=== PATIENT | male | born 2000 | race Caucasian/White ===

== ENCOUNTER 2020-03-30 15:55 | Outpatient (REF) | payer OTHER, SELFPAY | END 2020-03-30 15:56 | disposition home or self-care (01) | LOC: HO.LAB 15:55 | PROVIDERS: Visit Provider Internal Medicine | DX: Z20.828 Contact with and (suspected) exposure to other viral communicable diseases (principal) | CPT/HCPCS: C9803; U0003 ==

== ENCOUNTER 2020-05-04 16:47 | Outpatient (REF) | payer OTHER, SELFPAY | END 2020-05-04 16:48 | disposition home or self-care (01) | LOC: HO.LAB 16:47 | PROVIDERS: Visit Provider Internal Medicine | DX: Z20.822 Contact with and (suspected) exposure to COVID-19 (principal) | CPT/HCPCS: 36415; C9803; U0003 ==

== ENCOUNTER 2020-05-16 16:16 | Outpatient (REF) | payer OTHER, SELFPAY | END 2020-05-16 16:17 | disposition home or self-care (01) | LOC: HO.LAB 16:16 | PROVIDERS: Visit Provider Internal Medicine | DX: Z20.822 Contact with and (suspected) exposure to COVID-19 (principal) | CPT/HCPCS: 36415; C9803; U0003 ==

== ENCOUNTER 2020-07-11 15:28 | Outpatient (REF) | payer OTHER, SELFPAY | END 2020-07-11 15:29 | disposition home or self-care (01) | LOC: HO.LAB 15:28 | PROVIDERS: Visit Provider Internal Medicine | DX: Z20.822 Contact with and (suspected) exposure to COVID-19 (principal) | CPT/HCPCS: 36415; C9803; U0003; U0005 ==

== ENCOUNTER 2020-07-14 14:41 | Outpatient (REF) | payer OTHER, SELFPAY | END 2020-07-14 14:42 | disposition home or self-care (01) | LOC: HO.LAB 14:41 | PROVIDERS: Visit Provider Internal Medicine | DX: Z20.822 Contact with and (suspected) exposure to COVID-19 (principal) | CPT/HCPCS: 36415; C9803; U0003; U0005 ==

== ENCOUNTER 2020-08-17 14:08 | Outpatient (REF) | payer OTHER, SELFPAY ==
[2020-08-17 14:27] LABS: COVID-19 Test Negative (Negative)
== END 2020-08-17 14:09 | disposition home or self-care (01) ==
LOC: HO.LAB 14:08
PROVIDERS: Visit Provider Internal Medicine
DX: Z20.822 Contact with and (suspected) exposure to COVID-19 (principal)
CPT/HCPCS: 36415; 87635; C9803

== ENCOUNTER 2021-04-28 11:33 | Outpatient (REF) | payer OTHER, SELFPAY | END 2021-04-28 11:34 | disposition home or self-care (01) | LOC: HO.LAB 11:33 | PROVIDERS: Visit Provider Pediatrics | DX: Z20.822 Contact with and (suspected) exposure to COVID-19 (principal) | CPT/HCPCS: U0003; U0005 ==

== ENCOUNTER 2021-09-01 19:50 | Emergency (ER) | payer OTHER, SELFPAY ==
--- NOTE | 2021-09-01 21:51 | PC.NURSE ---
Called pt for triage, but no response. LWBS.
== END 2021-09-01 22:16 | disposition left against medical advice (07) ==
LOC: HO.ED 22:13
PROVIDERS: Emergency Provider Emergency Medicine; PCP Physician Assistant
DX: M25.511 Pain in right shoulder (principal)

== ENCOUNTER 2021-09-02 01:23 | Emergency (ER) | payer OTHER, SELFPAY ==
[2021-09-02 01:38] VITALS: BP 137/70; PULSE 75; RESP 18; TEMP 37; BMI 22.4
[2021-09-02 03:32] VITALS: BP 123/70; PULSE 63; RESP 12; O2SAT 98
[2021-09-02 06:10] VITALS: BP 136/76; PULSE 68; RESP 14; O2SAT 98
== END 2021-09-02 06:32 | disposition left against medical advice (07) ==
PROVIDERS: Emergency Provider Emergency Medicine
DX: M25.511 Pain in right shoulder (principal)

== ENCOUNTER 2021-11-13 14:45 | Emergency (ER) | payer OTHER, SELFPAY ==
[2021-11-13 15:04] VITALS: BP 123/73; PULSE 85; RESP 18; TEMP 36.1; O2SAT 97; BMI 20.9
--- NOTE | 2021-11-13 17:47 | ED_ITS ---
HPI - Male Genitourinary General Chief complaint: Urogenital-Male Stated complaint: STD testing Time Seen by Provider: 11/13/21 17:32 Source: patient Mode of arrival: ambulatory Limitations: no limitations History of Present Illness HPI Narrative: 21-year-old male who is healthy here with concern for STD. Patient tells me his sexual partner contacted him and informed him that they were positive for chlamydia. Patient is asymptomatic Related Data Previous Rx's Medication Instructions Recorded doxycycline monohydrate 100 mg 100 mg PO BID #14 tabs 11/13/21 tablet Allergies Allergy/AdvReac Type Severity Reaction Status Date / Time No Known Allergies Allergy Verified 09/04/21 07:24 Review of Systems Review of Systems: Yes all other systems are reviewed and are negative Constitutional: Constitutional: Reports no additional constitutional complaints, Denies body ache(s), Denies chills, Denies fever(s), Denies headache(s) and Denies weakness Eyes: Eyes: Reports no additional eye complaints and Denies change in vision ENT: Reports system reviewed and no additional complaints, except as documented, Denies dizziness, Denies headache(s), Denies nasal congestion, Denies nasal discharge and Denies neck pain Cardiovascular: Cardiovascular: Reports no additional cardiovascular complaints, Denies chest pain, Denies leg edema and Denies dyspnea Respiratory: Respiratory: Reports no additional respiratory complaints, Denies cough and Denies dyspnea Gastrointestinal: Gastrointestinal: Reports no additional gastrointestinal com plaints, Denies abdominal pain, Denies diarrhea, Denies nausea and Denies vomiting Genitourinary: Genitourinary: Denies urinary incontinence Musculoskeletal: Musculoskeletal: Reports no additional musculoskeletal complaints, Denies back pain, Denies arthralgias, Denies joint swelling, Denies neck pain, Denies numbness and Denies tingling Integumentary/Breasts: Skin/Breast: Reports system reviewed and no additional complaints, except as docu and Denies rash Neurologic: Reports system reviewed and no additional complaints, except as documented, Denies Abnormal speech present, Denies dizziness, Denies he adache(s), Denies numbness, Denies tingling and Denies weakness PMFSH Past Medical History Attestation statement: The following information was validated with the patient. Source: old records reviewed and nursing notes reviewed Medical History COVID-19 Social History Social History Advance Directives: No Advance Directives Information Provided: No Physical Exam Vital Signs: Vital Signs: Last Vital Signs Temp 96.9 F 11/13/21 15:04 Pulse 85 11/13/21 15:04 Resp 18 11/13/21 15:04 BP 123/73 11/13/21 15:04 Pulse Ox 97 11/13/21 15:04 O2 Del Method 11/13/21 15:04 BMI result Body Mass Index 20.9 Const: General: cooperative, healthy appearing, comfortable and no acute di stress Orientation/consciousness: patient oriented x3 Limitations: no limitations HEENT: Head: Yes normal to inspection Ears: hearing grossly normal bilaterally General nose exam: Normal external nose present Face and sinus : Yes normal facial exam Mouth: Normal oral and palatal mucosa present Throat: Yes posterior oropharynx normal Eyes: General: appearance normal, both eyes and all related structures Pupils: Equal, round and reactive pupils present Neck: Neck: Yes normal visual inspection Chest: Chest palpation & inspection: normal inspection of the chest Resp: Effort & Inspection: normal respiratory effort Auscultation: clear to auscultation bilaterally Cardio: Rate: regular rate Rhythm: regular rhythm Peripheral pulses: Peripheral pulses 2+ throughout GI: Inspection: Yes normal to inspection Palpation (GI): Soft to palpation and nontender Auscultation: normal bowel sounds Back/Spine/Pelvis: Thoracic/Lumbar Spine: thoracic and lumbar spine normal to inspection Skin: General skin exam: no rashes or lesions noted Neuro: General: patient oriented x3, no focal motor deficits and normal sensation to monofilament Cranial nerves: Yes Equal, round and reactive pupils present Cognition (Neuro): normal cognition Speech: No Abnormal speech present Gait exam (Neuro): Normal gait present Motor exam (neuro): 5/5 motor strength present throughout Extrem: General: Yes normal to inspection Course Course Course Narrative: patient treated prophylactically with ceftriaxone 500 mg IM. Patient will be sent home on doxycycline. Reviewed worrisome signs and symptoms of when to return to the emergency department. Comfortable discharge home. MDM - Male Genitourinary MDM Narrative Medical decision making narrative: 21-year-old male here with concern for STD exposure to chlamydia. Patient seeking STD testing. He is asymptomatic Medical Records Attestation: I reviewed the patient's medical records. Lab Data Attestation: I reviewed the patient's lab results. Discharge Plan Discharge Clinical Impression: Concern about STD in male without diagnosis Patient Disposition: Home, Self-Care Instructions: Sexually Transmitted Diseases (ED) Additional Instructions: the test results take a few days to come back. We will call you if they are positive. Prescriptions: New doxycycline monohydrate 100 mg tablet 100 mg PO BID Qty: 14 0RF Referrals: Patti Delatorre PA-C [Primary Care Provider] - 1 week ( As needed)
[2021-11-13] MEDS: cefTRIAXone sodium 500 MG, Lidocaine HCl 1 % MPF 1 ML IM (17:58)
[2021-11-14 07:02] LABS: CT PCR DETECTED (Not Detect.); NG PCR NOT DETECTED (Not Detect.)
== END 2021-11-13 18:05 | disposition home or self-care (01) ==
PROVIDERS: Emergency Provider Emergency Medicine; PCP Physician Assistant
DX: Z20.2 Contact with and (suspected) exposure to infections with a predominantly sexual mode of transmission (principal); Z79.899 Other long term (current) drug therapy
CPT/HCPCS: 87491; 87591; 96372; 99282; 99284; J0696

== ENCOUNTER 2022-06-01 11:45 | Outpatient (REF) | payer OTHER, SELFPAY ==
[2022-06-01 12:19] LABS: COVID-19 Test Negative (Negative); IDNOW Serial# 16C4AD1C
== END 2022-06-01 11:46 | disposition home or self-care (01) ==
LOC: HO.LAB 11:45
PROVIDERS: Visit Provider Internal Medicine
DX: Z20.822 Contact with and (suspected) exposure to COVID-19 (principal)
CPT/HCPCS: 87635; C9803

== ENCOUNTER 2024-05-09 11:07 | Emergency (ER) | payer SELFPAY ==
[2024-05-09 11:17] VITALS: BP 113/77; PULSE 102; RESP 19; TEMP 37.2; O2SAT 99; BMI 20.4
--- NOTE | 2024-05-09 11:18 | ED.GENADULT ---
HPI - General Adult General Chief complaint: Nausea/Vomiting/Diarrhea Stated complaint: vomiting diarrhea Time Seen by Provider: 05/09/24 12:16 Source: patient Mode of arrival: ambulatory Limitations: no limitations History of Present Illness ED Provider: Terra Palmer NP HPI narrative: Patient is a 23-year-old male who presents emergency department for evaluation he endorses nausea, 3 or 4 episodes of bilious nonbloody emesis and 3 episodes of watery diarrhea with onset this morning. He does admit that his significant other was ill with a gastrointestinal illness 2 days ago that presented similarly. Patient denies going out to eat or eating any foods that are atypical for him over the past few days. He denies associated fevers, chills, headache, dizziness, lightheadedness, neck pain, sore throat, cough, chest pain, shortness of breath, difficulty breathing, abdominal pain, back pain, genitourinary symptoms. Related Data Previous Rx's ?Medication ?Instructions ?Recorded doxycycline monohydrate 100 mg 100 mg PO BID #14 tabs 11/13/21 tablet ondansetron 4 mg disintegrating 4 mg PO Q8H PRN nausea and 05/09/24 tablet vomiting #10 tabs Allergies Allergy/AdvReac Type Severity Reaction Status Date / Time No Known Allergies Allergy Verified 05/09/24 11:18 Review of Systems Review of Systems: Yes all other systems are reviewed and are negative PMFSH Past Medical History Attestation statement: The following information was validated with the patient. Source: old records reviewed Medical History COVID-19 Social History Social History Advance Directives: No Advance Directives Information Provided: No Do you have a plan to hurt others: No Plan Physical Exam ED Vital Signs: Vital Signs - 24 hr 05/09/24 11:17 Temperature 99 F Pulse Rate 102 H Respiratory Rate 19 Blood Pressure 113/77 Pulse Oximetry 99 Oxygen Delivery Method Room Air BMI result Body Mass Index 20.4 Appearance: Alert.?Oriented to person, place and time. No acute distress.?Normal affect. Eyes: Pupils equal, round and reactive to light.? ENT: Pharynx normal.?? Neck: Normal inspection.? Neck supple.?? CVS: Heart sounds normal. Normal heart rate and rhythm.? Pulses normal.?? Respiratory: No respiratory distress.? Lung sounds clear to auscultation bilaterally?? Abdomen: Soft and non-tender. Normoactive bowel sounds. No CVAT? Skin: Skin warm and dry.? Normal skin color.? Extremities: No lower extremity edema.? Neuro: Moves all extremities spontaneously. Sensation intact bilaterally. Ambulates with normal steady gait. Course Course Course Narrative: This is a Rapid Medical Examination (RME) performed by Yecenia Lanier PA-C in triage. Full HPI, ROS, assessment and treatment plan per primary provider in the Main ED. 23 yo male here for eval of N/V/D since this morning. no abd pain. no blood in stool or vomit. no sick contacts. Plan: basic labs, viral swabs Medications Administered Discontinued Medications Generic Name Dose Route Start Last Admin Trade Name Freq PRN Reason Stop Dose Admin Ondansetron HCl 4 mg 05/09/24 12:22 05/09/24 12:55 Ondansetron Odt 4 Mg Tab.Rapdis TRANSLINGU 05/09/24 12:23 4 mg ONCE ONE Administration Medical Decision Making Medical Decision Making MDM Narrative: Patient is a 23-year-old male presents emergency department for evaluation of nausea vomiting and diarrhea with onset this morning in the setting of his significant other being ill over the past 2 days with similar symptoms. I suspect that this is most likely a viral gastrointestinal illness. Abdominal examination is benign, overall without signs of systemic toxicity found to be afebrile no significant tachycardia, no hypotension. Examination not consistent with acute abdomen, no peritoneal signs; no tenderness upon light palpation, no rebound tenderness, no guarding, no percussive tenderness. Serum labs were obtained prior to my assumption of care CBC revealing a mild leukocytosis of 13.1, no anemia or thrombocytopenia. No significant electrolyte derangement. No DANIELA. Mildly elevated AST/ALT 99/82 with benign abdominal examination, lower suspicion for acute hepatobiliary etiology and lipase is within normal range. COVID-19/influenza/RSV testing negative. No history of acid reflux, no tenderness over the epigastrium or left upper quadrant to suggest gastritis, no hematemesis to suggest PUD. Denies excessive alcohol consumption or history of diabetes to suggest acute pancreatitis. Will plan for sublingual Zofran and p.o. trial, discussed importance of clear liquids over the next 24-48 hours followed by a bland diet. Tolerated p.o. trial, amenable to discharge home with conservative treatment. Discussed strict return precautions. Differential Diagnosis Differential Diagnoses: The differential diagnosis associated with the presentation includes (See narrative above) Admission/Observation Consideration of admission/observation: Escalation of care including admission/observation considered (See narrative above ) Lab Data MDM Lab Attestation statement: I reviewed the patient's lab results. 05/09/24 11:25 05/09/24 11:25 Labs: Lab Results 05/09/24 Range/Units 11:25 WBC 13.1 H (4.8-10.8) X10*3/uL RBC 6.35 H (4.60-5.80) X10*6/uL Hgb 17.0 (14.0-18.0) g/dl Hct 51.2 (42.0-52.0) % MCV 80.6 (80.0-98.0) fL MCH 26.8 L (27.0-33.0) pg MCHC 33.2 (31.0-36.0) g/dl RDW 13.0 (11.0-16.0) % Plt Count 245 (160-400) X10*3/uL MPV 10.0 (9.4-12.4) fL Immature Gran % (Auto) 0.3 (0.0-0.4) % Neut % (Auto) 92.7 H (45-73) % Lymph % (Auto) 2.9 L (20-40) % [place] % (Auto) 3.6 (2-11) % Eos % (Auto) 0.3 (0-4) % Baso % (Auto) 0.2 (0-2) % Lymph # (Auto) 0.4 L (1.2-4.9) X10*3/uL [place] # (Auto) 0.5 (0.1-1.2) X10*3/uL Eos # (Auto) 0.0 (0.0-0.4) X10*3/uL Baso # (Auto) 0.0 (0.0-0.2) X10*3/uL Abs Immat Gran (auto) 0.04 H (0.00-0.03) X10*3/uL Absolute Neuts (auto) 12.1 H (2.0-8.3) x10*3/uL Absolute Nucleated RBC 0.000 (0.0-0.012) X10*3/uL Nucleated RBC % (auto) 0.0 (0.0-0.2) /100WBC Smear Tech's Comments VERIFIED Sodium 141 (135-145) mmol/L Potassium 4.6 (3.3-5.1) mmol/L Chloride 104 (96-108) mmol/L Carbon Dioxide 30 H (22-29) mmol/L Anion Gap 12 (12-20) BUN 12 (9-16) mg/dL Creatinine 0.88 (0.5-1.4) mg/dL Estim Creat Clear Calc 108.8 Estimated GFR > 60 Random Glucose 136 H (60-115) mg/dL Calcium 10.0 (8.4-10.2) mg/dL Total Bilirubin 0.8 (0.0-1.0) mg/dL AST 99 H (5-37) U/L ALT 82 H (0-40) U/L Alkaline Phosphatase 87 (39-117) U/L Total Protein 8.8 H (6.5-8.0) g/dL Albumin 5.1 H (3.5-5.0) g/dL Lipase 14 (8-78) U/L Influenza Type A (PCR) NEGATIVE (Negative) Influenza Type B (PCR) NEGATIVE (Negative) RSV RNA Qual (PCR) NEGATIVE (Negative) SARS-CoV-2 RNA (RT-PCR) NEGATIVE (Negative) Independent Historian Clinical information obtained from an independent historian. History obtained from or confirmed by: Spouse External Record Review External record reviewed: Outpatient record Prescription Management I considered prescription management with: Other (Antiemetic) Discharge Plan Discharge Clinical Impression: Gastroenteritis Patient Disposition: Home, Self-Care Instructions: Gastroenteritis (ED) Additional Instructions: Be sure to stay well hydrated, drink plenty of fluids. Over the next 24-48 hours consider the use of clear liquids only followed by a bland diet. Introduce a bland diet including crackers, bananas, rice, soup, toast, and boiled vegetables. This may progress to plain baked or boiled chicken or turkey. Avoid dairy products or foods high in fat or grease. Sent a prescription for Zofran to your pharmacy to use as needed for nausea/vomiting. You may return with any new or worsening symptoms or concerns Prescriptions: New ondansetron 4 mg tablet,disintegrating 4 mg PO Q8H PRN (Reason: nausea and vomiting) Qty: 10 0RF No Action doxycycline monohydrate 100 mg tablet 100 mg PO BID Qty: 14 0RF Referrals: Patti Delatorre, JADIEL [Primary Care Provider] - Print Language: Romanian
[2024-05-09 11:33] LABS: Basophils Percent Auto 0.2 % (0-2); Eosinophils Percent Auto 0.3 % (0-4); Hematocrit 51.2 % (42.0-52.0); Imm Gran Abs Auto 0.04 X10*3/uL (0.00-0.03); Imm Gran Pct Auto 0.3 % (0.0-0.4); Lymphocytes Absolute Auto 0.4 X10*3/uL (1.2-4.9); Lymphocytes Percent Auto 2.9 % (20-40); MANUAL DIFF FLAG SCAN; Mean Corpuscular HGB Conc 33.2 g/dl (31.0-36.0); Mean Corpuscular Hemoglobin 26.8 pg (27.0-33.0); Mean Corpuscular Volume 80.6 fL (80.0-98.0); Monocytes Absolute Auto 0.5 X10*3/uL (0.1-1.2); Monocytes Percent Auto 3.6 % (2-11); Neutrophils Absolute Auto 12.1 x10*3/uL (2.0-8.3); Neutrophils Percent Auto 92.7 % (45-73); Platelet Count 245 X10*3/uL (160-400); Red Blood Count 6.35 X10*6/uL (4.60-5.80); SCAN SMEAR FLAG 1; White Blood Count 13.1 X10*3/uL (4.8-10.8)
[2024-05-09 11:51] LABS: Alanine Aminotransferase 82 U/L (0-40); Albumin Level 5.1 g/dL (3.5-5.0); Alkaline Phosphatase 87 U/L (39-117); Anion Gap 12 (12-20); Aspartate Amino Transferase 99 U/L (5-37); Bilirubin Total 0.8 mg/dL (0.0-1.0); Blood Urea Nitrogen 12 mg/dL (9-16); Carbon Dioxide 30 mmol/L (22-29); Chloride 104 mmol/L (96-108); Creatinine Clr Calc Pharmacy 108.8; Estimated Glomerular Filt Rate > 60; Glucose Random 136 mg/dL (60-115); Lipase 14 U/L (8-78); Potassium 4.6 mmol/L (3.3-5.1); Sodium 141 mmol/L (135-145); Total Protein 8.8 g/dL (6.5-8.0)
[2024-05-09 11:55] LABS: SLIDE REVIEW VERIFIED
[2024-05-09 12:14] LABS: Influenza A PCR NEGATIVE (Negative); Influenza B PCR NEGATIVE (Negative); Resp Syncy Virus RNA Qual PCR NEGATIVE (Negative); SARS COV2 PCR INHOUSE NEGATIVE (Negative)
[2024-05-09] MEDS: Ondansetron ODT 4 MG TAB.RAPDIS TRANSLINGU (12:55)
[2024-05-09 14:35] VITALS: BP 119/70; PULSE 104; RESP 16; TEMP 37.4; O2SAT 98
[2024-05-09 14:55] VITALS: BP 119/70; PULSE 104; RESP 16; TEMP 37.4; O2SAT 98
== END 2024-05-09 14:57 | disposition home or self-care (01) ==
PROVIDERS: Physician Assistant Medical; Emergency Provider Emergency Medicine; PCP Physician Assistant
DX: K52.9 Noninfective gastroenteritis and colitis, unspecified (principal); R11.2 Nausea with vomiting, unspecified; Z03.818 Encounter for observation for suspected exposure to other biological agents ruled out
CPT/HCPCS: 0241U; 80053; 83690; 85025; 99283

== ENCOUNTER 2025-03-16 16:37 | Emergency (ER) | payer SELFPAY ==
--- NOTE | ~2025-03-16 | XR_ITS ---
CLINICAL HISTORY: trauma 3 views lumbar spine Comparison: None provided Findings: Normal alignment. No acute fractures or dislocation. No significant degenerative change. IMPRESSION: No acute findings. This document has been electronically signed by: Arden Ash MD on 03/16/2025 18:13:23
[2025-03-16 16:47] VITALS: BP 147/83; PULSE 84; RESP 16; TEMP 36.7; O2SAT 99
[2025-03-16 16:57] VITALS: BP 122/71; BP 141/82; PULSE 78; PULSE 83; RESP 16; TEMP 36.7; O2SAT 100; O2SAT 97; BMI 20.4
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
[2025-03-16] MEDS: Lidocaine 4 % Patch ADH..PATCH 1 PATCH TRANSDERMA (17:55)
[2025-03-16 18:00] VITALS: BP 130/70; PULSE 77; RESP 16; TEMP 36.9; O2SAT 97
[2025-03-16 18:54] VITALS: BP 130/70; PULSE 77; RESP 16; TEMP 36.9; O2SAT 97
--- OUTSIDE RECORDS SUMMARY | 2025-03-16 19:39 | XMS_ITS | Clinical Summary ---
Author Organization [facility] Address [address] [place] [phone] Phone Care Team Providers Care Station Installer And Repairer Name Role Phone Unavailable Primary Care Provider Unavailabl e Immunizations Immunization Administration Dates Next Due DTaP 5 09/25/2001,2000,2000 ,2000 Hep B, ped/adol 2000,2000,2000 Hib (PRP-T) 12/14/2001,2000,2000 ,2000 IPV 09/25/2001,2000,2000 MMR 07/25/2004,07/14/2001 Pneumococcal Conjugate 07/25/2004,2000,,2000 Varicella 07/14/2001 Social History Tobacco Use Types Packs/Day Years Used Date Smoking Tobacco: Never Assessed Sex and Gender Information Value Date Recorded Sex Assigned at Not on file Legal Sex Male 4:11 PM EDT Gender Identity Not on file Sexual Orientation Not on file Plan of Treatment Health Maintenance Due Date Last Done Comments IPV Vaccines (4 of 4 - 4-dose series) 2004 09/25/2001, 2000, 2000 Varicella Vaccines (2 of 2 - 2-dose childhood series) 08/22/2004 07/14/2001 DTaP,Tdap,and Td Vaccines (5 - Tdap) 2011 09/25/2001, 2000, 2000, Additional history exists HPV Vaccines (1 - Male 3-dose series) 2015 Influenza Vaccines (#1) 2024 COVID-19 Vaccine ( season) 2024 Hepatitis B Vaccines Completed 2000, 2000, 2000 HIB Vaccines Completed 12/14/2001, 11/20, 2000, Additional history exists MMR Vaccines Completed 07/25/2004, 07/14/2001 Pneumococcal Vaccine Completed 07/25/2004, 2000, 2000, Additional history exists Hepatitis A Vaccines Aged Out No long er eligible based on patient's age to complete this topic Men B Vaccine Aged Out No longer elig ible based on patient's age to complete this topic Meningococcal Vaccine Aged Out No guerline ena eligible based on patient's age to complete this topic
--- OUTSIDE RECORDS SUMMARY | 2025-03-16 19:39 | XMS_ITS | Encounter Summary ---
Author Organization [facility] Address [address] [place] [address] Phone Care Team Providers Care Superintendent Commissary Name Role Phone Christin Martino NP Primary Care Provider Janeth soto Encounter Details Date Type Department Care Team (Late st Contact Info) Description 12/06/2016 Conversion Encounter [facility] - [address] [phone] Social History Tobacco Use Types Packs/Day Years Used Date Smoking Tobacco: Never Assessed Sex and Gender Information Value Date Recorded Sex Assigned at Not on file Legal Sex Male 4:11 PM EDT Gender Identity Not on file Sexual Orientation Not on file documented as of this encounter Plan of Treatment Not on file documented as of this encounter Visit Diagnoses Not on filedocumented in this encounter Care Teams Superintendent Commissary Relationship Specialty Start Date End Date Christin Martino NP PCP - General 11/30/16 07/04/22 documented as of this encounter
== END 2025-03-16 19:07 | disposition home or self-care (01) ==
PROVIDERS: Emergency Provider Student in an Organized Health Care Education/Training Program
DX: S16.1XXA Strain of muscle, fascia and tendon at neck level, initial encounter (principal); S39.012A Strain of muscle, fascia and tendon of lower back, initial encounter; V43.52XA Car driver injured in collision with other type car in traffic accident, initial encounter; Y93.9 Activity, unspecified; Y92.410 Unspecified street and highway as the place of occurrence of the external cause; Y99.9 Unspecified external cause status
CPT/HCPCS: 72100; 99283; 99284

== ENCOUNTER → 2025-03-16 17:48 | Outpatient (BNV) | payer OTHER, SELFPAY | PROVIDERS: Emergency Provider Student in an Organized Health Care Education/Training Program; Visit Provider Radiology Diagnostic Radiology | DX: Z04.3 Encounter for examination and observation following other accident (principal) | CPT/HCPCS: 72100 ==